=== PATIENT | female | born 1990 | race Caucasian/White ===

== ENCOUNTER → 2020-06-28 14:48 | Outpatient (BNVA) | payer OTHER, SELFPAY | PROVIDERS: PCP Family Medicine; Visit Provider Physician Assistant ==

== ENCOUNTER 2020-07-05 10:54 | Day surgery (SDC) | payer OTHER, SELFPAY ==
[2020-07-05 11:18] LABS: UPreg QC Valid YES; Urine Pregnancy NEGATIVE (NEGATIVE)
--- NOTE | 2020-07-05 11:58 | P.CONAN_ITS ---
HPI - Anesthesia Eval Consult details Narrative: 30 year old female patient here for EGD and colonoscopy PMF Active Problems Active Problems: All Active Problems (Updated 07/01/20 @ 15:53 by Melanie Iyer PA-C) Elevated C-reactive protein (Acute) IBS (irritable bowel syndrome) (Acute) Past Medical History Medical History (Updated 07/05/20 @ 12:34 by Suha Hummel) IBS (irritable bowel syndrome) Increased BMI Snoring Family History Family History Mother Breast cancer Family history of problems with anesthesia: No Surgical History History of Problems with Anesthesia: No Social History Social History Household Members: Spouse and Children Alcohol intake: never Smoking Status: Never smoker Use of substances other than those prescribed or required for medical reasons: No Advance Directives: No Advance Directives Information Provided: Yes Recently lost weight without trying: No Current occupational status: employed Current occupation: [employer] Meds Allergies Allergy/AdvReac Type Severity Reaction Status Date / Time No Known Allergies Allergy Mild NOT Verified 06/28/20 14:50 APPLICABLE Active Medications: Current Medications Generic Name Dose Route Start Last Admin Trade Name Freq PRN Reason Stop Dose Admin Lactated Ringer's 1,000 mls @ 100 mls/hr 07/05/20 12:00 Lr IVCONT .[facility] Home Medications Medication Instructions Recorded Confirmed Last Taken Type cholecalciferol (vitamin D3) 50 50 mcg PO DAILY 06/28/20 06/28/20 Unknown History mcg (2,000 unit) capsule Exam Exam Date and Time: July 05, 2020 1158 Height,Weight and Vital Signs: Vital Signs Temp Pulse Resp BP Pulse Ox 07/05/20 12:10 98.0 F 100 18 158/94 H 99 Pertinent Lab Results Pertinent Lab Results: Laboratory Tests 07/05/20 11:00 Urine Test NEGATIVE Airway Mallampati Class: II TM Dist: >3cm Neck ROM: Full Heart: RRR Lungs: CTAB Assessment and Plan Assessment Anesthesia Assessment: Anesthesia Plan Discussed and Chart Reviewed Final Anesthetic Review NPO: Yes ASA Class: III Final Preanesthetic Review: No Changes in Pt Med Stat, Meds/Allgs Chart Reviewed, Consent Obtained/Reviewed and Anes Risks/Benef Reviewed Patient Risk: Intermediate Procedure Risk: Low Assessment/Block/Sedation in SS: Assess/Block/Sedation-SS Anesthetic Plan Anesthetic Plan: MAC: Disposition: Standard PACU
[2020-07-05 12:01] VITALS: BMI 47.2
--- NOTE | 2020-07-05 12:02 | MHC.SHP ---
Pre-Procedural Eval Section B Chief Complaint: IBS Relevant Family History (Specify if Yes): No Relevant Social History: None Present Medications: see Short Stay Collaborative assessment Medical History: Significant History (IBS (irritable bowel syndrome)) History of Previous Operations: No relevant previous surgery Allergies: Allergies Allergy/AdvReac Type Severity Reaction Status Date / Time No Known Allergies Allergy Mild NOT Verified 06/28/20 14:50 APPLICABLE Review of Systems Sugical H&P ROS: Negative: Constitution, Cardiovascular, Respiratory, Neurological, Psychiatric, Hem-Onc, Allergic/Immunologic, Gastrointestinal, Genitourinary, Musculoskeletal, Integumentary, Endocrine and Eyes/Ears/Nose/Throat Exam Surgical H&P Exam: Normal: HEENT, Normal: Heart, Normal: Lungs, Normal: Extremities, Normal: Abdomen, Normal: Skin and Normal: Neurological Plan Diagnosis/Plan: Unchanged I have reviewed the history and physical and performed a pertinent physical examination on my patient. No changes have occurred unless specified.
[2020-07-05] MEDS: Lactated Ringers 1,000 ML 100 ML IVCONT (12:07)
[2020-07-05 12:10] VITALS: BP 158/94; PULSE 100; RESP 18; TEMP 36.7; O2SAT 99
--- NOTE | 2020-07-05 12:36 | PM.OP ---
Brief Operative Note Date of Service: 07/05/20 Pre-op diagnosis: abdo pain, raised CRP, ESR Post-op diagnosis: same Procedure: see op note Surgeon: Rosa White MD Anesthesia: MAC Estimated blood loss (mL): 0 Condition: stable Disposition: PACU
--- NOTE | 2020-07-05 12:36 | W.PM.OPN ---
Operative Note Operative Note Date of Service: 07/05/20 Narrative: Operative Information Procedure Description: EGD, Colonoscopy FLEXIBLE TRANSORAL UPPER GASTROINTESTINAL ENDOSCOPY AND COLONOSCOPY PROCEDURE NOTE UPPER ENDOSCOPY Consent: Indications for the procedure and potential complications of bleeding, perforation, reaction to medications and missed diagnosis were discussed with the patient and informed consent was obtained. Instrument: Olympus GIF H 190 J mid size upper endoscope Monitoring: Vital signs and clinical assessment, continuous EKG monitoring, Pulse oximetry, Carbon Dioxide monitoring and blood pressure monitoring were done throughout the procedure. Procedure: The patient was placed in the left lateral decubitis position and pre-procedure medications were administered and a bite block was placed. The endoscope was inserted into the mouth and advanced under direct vision to the third part of duodenum. A careful inspection was made as the upper endoscope was withdrawn including a retroflexed examination of the proximal stomach; Findings and interventions are described below. Findings: Larynx:normal Esophagus: GE junction at 35 cm, diaphragm hiatus at 37 cm, mild erosive esophagitis noted -bx taken from random esophagus and GEJ, 2 cm hiatal hernia noted Stomach: Normal mucosa. Biopsies were obtained. Grade 2 flap valve on retroflexed examination of the cardia. Duodenum: Normal bulb and descending duodenum, bx taken Intervention: Biopsies as noted above COLONOSCOPY Instrument: Olympus variable stiffness pediatric scope 190L Colonoscopy Monitoring: Vital signs and clinical assessment, continuous EKG monitoring, Pulse oximetry, Carbon Dioxide monitoring and blood pressure monitoring were done throughout the procedure. Colon withdrawal time was 15 minutes. Procedure: The patient was placed in the left lateral decubitis position and pre-procedure medications were administered. After a digital rectal examination of the ano-rectum, the video colonoscope was inserted into the rectum and advanced through the colon to the cecum/TI. The colonoscope was slowly withdrawn in a retrograde panoramic fashion and the colon mucosa was carefully examined including a retroflexed view of the rectum. Findings and interventions are described below. Procedure Difficulty:difficult, required pressure to right and left abdomen, ?has internal hernia, transverse colon appeared extrinsically compressed Findings: Terminal Ileum-normal, bx taken bx taken from right colon and left/transverse colon in different jars Cecum:normal Ascending Colon: normal Transverse Colon -normal Descending Colon:normal Sigmoid Colon: normal Rectum: Retroflexion with small internal hemorrhoids, grade I Anorectum - normal Colon preparation: [place] Bowel Preparation Scale Right colon; 3 Transverse colon: 3 Left colon; 3 (0 = Unprepared colon segment with mucosa not seen due to solid stool that cannot be cleared. 1 = Portion of mucosa of the colon segment seen, but other areas of the colon segment not well seen due to staining, residual stool and/or opaque liquid. 2 = Minor amount of residual staining, small fragments of stool and/or opaque liquid, but mucosa of colon segment seen well. 3 = Entire mucosa of colon segment seen well with no residual staining, small fragments of stool or opaque liquid) Impression and Post Procedure Diagnosis: Endoscopy Findings: esophagitis small hiatal hernia Colonoscopy Findings: internal hemorrhoids possible internal hernia Plan: Await Pathology results Repeat Colonoscopy aged 45 years or earlier if clinically indicated High fiber diet leaflet avoid straining at stool, epsom salts and sitz bath, anusol supps or cream as needed CT enterogram to r/o small bowel crohns and also to exclude any mass or intra abdominal hernia Above findings were reviewed with the patient and relevant handouts were provided if indicated.
[2020-07-05 13:15] VITALS: BP 123/64; PULSE 118; RESP 20; TEMP 36.1; O2SAT 98
[2020-07-05 13:30] VITALS: BP 117/48; PULSE 109; RESP 18; O2SAT 99
[2020-07-05 13:45] VITALS: BP 110/69; PULSE 102; RESP 20; O2SAT 99
[2020-07-05 14:07] VITALS: BP 120/64; PULSE 103; RESP 20; TEMP 36.6; O2SAT 99
== END 2020-07-05 14:20 | disposition home or self-care (01) ==
PROVIDERS: Anesthesiology; PCP Family Medicine; Visit Provider Internal Medicine Gastroenterology
PROC: (CPT 45380; principal; 2020-07-05 14:40)
DX: K58.0 Irritable bowel syndrome with diarrhea (principal); K63.89 Other specified diseases of intestine; K64.0 First degree hemorrhoids; R79.82 Elevated C-reactive protein (CRP); K20.80 Other esophagitis without bleeding; K44.9 Diaphragmatic hernia without obstruction or gangrene; R06.83 Snoring; Z79.899 Other long term (current) drug therapy
CPT/HCPCS: 45380; 43239; 81025; 88305; 88312; 88342

== ENCOUNTER 2020-08-31 13:55 | Outpatient (REF) | payer OTHER, SELFPAY ==
--- NOTE | ~2020-08-31 | CT_ITS ---
EXAMINATION: CT ENTEROGRAPHY ABDOMEN AND PELVIS WITH CONTRAST CLINICAL INFORMATION: Abdominal pain and increased C-reactive protein. Abdominal mass. Rule out Crohn's disease. COMPARISON: Previous CT of the abdomen and pelvis September 2008 TECHNIQUE: Study performed with oral VoLumen (1350 mL) and 480 mL of water to distend the abdomen. The patient was injected with 85 mL Omnipaque 350 intravenous contrast which was administered without adverse effect. Coronal and sagittal reformatted images were obtained at the technologist's workstation. This CT examination was performed using dose optimization techniques as appropriate, variously including the following: *Automated exposure control *Adjustment of mA and/or kV according to patient size (this includes techniques or standardized protocols for targeted exams where dose is matched to indication/reason for exam; i.e. extremities or head) *Use of iterative reconstruction technique DLP: 831 mGy-cm FINDINGS: GASTROINTESTINAL FINDINGS: Stomach: Well-distended and normal in appearance. Small intestine: Satisfactorily distended and normal in appearance. Large intestine: Well-distended and normal in appearance. No perirectal changes demonstrated. The appendix is normal. Additional findings: No abnormal enhancement of the vasa recta or significant mesenteric or retroperitoneal lymphadenopathy is seen. No abdominal abscess or fistulous tract demonstrated. ABDOMINAL AND PELVIC CT FINDINGS: Liver, gallbladder, biliary tract: Unremarkable Pancreas: Unremarkable Spleen: Unremarkable Adrenal glands and kidneys: The adrenal glands are unremarkable. There is excreted contrast seen in the collecting systems which lower sensitivity for detection of small stones. The kidneys are otherwise unremarkable. Ureters and bladder: Bladder not optimally distended. Pelvis: There is an IUD in the uterus. The uterus and adnexa are otherwise unremarkable. Lymphovascular structures: Unremarkable Bones: There is degenerative disc disease at L5-S1. Abdominal wall: There is a small umbilical hernia containing fat. Lung bases: Unremarkable. CT/CT enterography IMPRESSION: Normal CT enterography exam. No evidence of Crohn's disease seen.
[2020-08-31] MEDS: iohexoL 350 MG/ML 100 ML INFUS..BTL IV (15:09)
[2020-08-31] MEDS: Sorbitol/Mannit/Xanth Imaging 500 ML LIQUID 1500 ML PO (15:11)
== END 2020-08-31 13:56 | disposition home or self-care (01) ==
LOC: HO.US 13:55
PROVIDERS: PCP Family Medicine; Visit Provider Internal Medicine Gastroenterology
DX: R10.9 Unspecified abdominal pain (principal); R79.82 Elevated C-reactive protein (CRP)
CPT/HCPCS: 74177; Q9967

== ENCOUNTER 2023-03-31 18:11 | Outpatient (REF) | payer OTHER, SELFPAY ==
[2023-03-31 21:28] LABS: Influenza A PCR NEGATIVE (Negative); Influenza B PCR NEGATIVE (Negative); Resp Syncy Virus RNA Qual PCR NEGATIVE (Negative); SARS COV2 PCR INHOUSE NEGATIVE (Negative)
== END 2023-03-31 18:12 | disposition home or self-care (01) ==
LOC: HO.HHCLNP 18:11
PROVIDERS: Visit Provider Family Medicine
DX: Z11.52 Encounter for screening for COVID-19 (principal); Z20.822 Contact with and (suspected) exposure to COVID-19
CPT/HCPCS: 0241U

== ENCOUNTER 2023-07-22 10:39 | Outpatient (REF) | payer BC, OTHER, SELFPAY ==
[2023-07-22 13:31] LABS: Hemoglobin 13.6 g/dl (12.0-16.0); Mean Corpuscular HGB Conc 32.4 g/dl (31.0-35.0); Mean Corpuscular Hemoglobin 26.9 pg (27.0-33.0); Mean Corpuscular Volume 83.2 fL (80.0-98.0); Mean Platelet Volume 10.7 fL (9.4-12.3); Platelet Count 290 X10*3/uL (160-400); Red Blood Count 5.05 X10*6/uL (4.20-5.50); Red Cell Distribution Width 13.4 % (11.0-16.0); White Blood Count 6.8 X10*3/uL (4.8-10.8)
[2023-07-22 13:42] LABS: Estimated Average Glucose 108 mg/dL; Hemoglobin A1c % 5.4 % (<6.0)
[2023-07-22 14:00] LABS: Alanine Aminotransferase 18 U/L (0-31); Albumin Level 4.3 g/dL (3.5-5.0); Alkaline Phosphatase 59 U/L (39-117); Anion Gap 13 (12-20); Aspartate Amino Transferase 16 U/L (5-31); Bilirubin Direct 0.1 mg/dL (0.0-0.5); Bilirubin Total 0.3 mg/dL (0.0-1.0); Blood Urea Nitrogen 10 mg/dL (9-16); Calcium 9.5 mg/dL (8.4-10.2); Carbon Dioxide 27 mmol/L (22-29); Chloride 103 mmol/L (96-108); Cholesterol 163 mg/dL (<200); Estimated Glomerular Filt Rate > 60; Glucose Random 100 mg/dL (60-115); HDL Cholesterol 40 mg/dL (>40); LDL Cholesterol Calculated 108 mg/dL (<100); Potassium 4.2 mmol/L (3.3-5.1); Sodium 139 mmol/L (135-145); Total Protein 7.6 g/dL (6.5-8.0); Triglycerides 79 mg/dL (<150)
[2023-07-22 14:03] LABS: Free T4 (Free Thyroxine) 1.01 ng/dL (0.71-1.85); Thyroid Stimulating Hormone 0.72 uIU/mL (0.32-4.0); Vitamin D 25-OH Total 14.4 ng/mL (>30)
[2023-07-23 08:32] LABS: HBS Num1 14.56 mIU/mL (0-7.99); HIV AB/AG Nonreactive (Nonreactive); HIV Num 1 0.06 S/CO (0.00-0.99); Hepatitis B Surface Antigen Negative (Negative); ~HepC Num1 0.18 S/CO (0.00-0.79); ~Hepatitis B Surface Antibody REACTIVE (Nonreactive); ~Hepatitis C Antibody Nonreactive (Nonreactive)
[2023-07-24 11:33] LABS: Follicle Stimulating Hormone 5.4 mIU/mL
[2023-07-27 17:24] LABS: RPR Rapid Plasma Reagin NON-REACTIVE (NON-REACTIVE)
== END 2023-07-22 10:40 | disposition home or self-care (01) ==
LOC: HO.HHCL 10:39
PROVIDERS: Visit Provider Family Medicine
DX: Z00.00 Encounter for general adult medical examination without abnormal findings (principal); Z11.4 Encounter for screening for human immunodeficiency virus [HIV]; Z13.6 Encounter for screening for cardiovascular disorders; R68.89 Other general symptoms and signs
CPT/HCPCS: 36415; 80048; 80061; 80076; 82306; 83001; 83002; 83036; 84439; 84443; 85027; 86592; 86706; 86803; 87340; 87389